=== PATIENT | female | born 1990 | race Caucasian/White ===

== ENCOUNTER → 2018-04-24 | Outpatient (CLI) | payer BC ==
[2018-04-24 09:40] LABS: BASOPHILS % (AUTO) 0 % (0-10); EOSINOPHILS # (AUTO) 0.1 10^3/uL (0.0-0.3); EOSINOPHILS % (AUTO) 1 % (0-10); HEMATOCRIT 40 % (35-52); HEMOGLOBIN 13.1 G/DL (11.5-16.0); LYMPHOCYTES # (AUTO) 1.4 X 10^3 (1.0-4.0); LYMPHOCYTES % (AUTO) 22 % (12-44); MEAN CORPUSCULAR HEMOGLOBIN 28 PG (25-34); MEAN CORPUSCULAR HGB CONC 33 G/DL (32-36); MEAN CORPUSCULAR VOLUME 86 FL (80-99); MEAN PLATELET VOLUME 9.5 FL (7.4-10.4); MONOCYTES # (AUTO) 0.4 X 10^3 (0.0-1.0); MONOCYTES % (AUTO) 6 % (0-12); NEUTROPHILS # (AUTO) 4.6 X 10^3 (1.8-7.8); NEUTROPHILS % (AUTO) 71 % (42-75); PLATELET COUNT 346 10^3/uL (130-400); RED CELL DISTRIBUTION WIDTH 13.7 % (10.0-14.5); WHITE BLOOD COUNT 6.5 10^3/uL (4.3-11.0)
--- NOTE | 2018-04-24 10:05 | Diagnostic Imaging Report ---
INDICATION: Pain. FINDINGS: The colonic fecal load is not pathologic. The bowel gas pattern is unremarkable. No dilated air-containing loops of bowel. Some calcifications in the left pelvis are consistent with phleboliths. A right pelvic calcification of 1.7 mm may be a phlebolith or a distal ureteral stone in the appropriate clinical scenario. IMPRESSION: 1. Nonobstructive bowel gas pattern. Pelvic calcifications are predominantly (if not exclusively) phleboliths. A right-sided calcification is indeterminate and could reflect a distal ureteral stone. If clinical features are compatible with ureteral obstruction, consider a CT abdomen/pelvis as further evaluation. 2. No other potential acute finding. Dictated by: Dictated on workstation # [id number]
[2018-04-24 10:31] LABS: ERYTHROCYTE SEDIMENTATION RATE 8 MM/HR (0-20)
== END ==
LOC: RAD 09:20
PROVIDERS: ATTEND Nurse Practitioner Family
DX: I87.8 Other specified disorders of veins (principal); R10.31 Right lower quadrant pain
CPT/HCPCS: 36415; 74018; 85025; 85652

== ENCOUNTER → 2018-05-08 | Outpatient (CLI) | payer BC ==
[~2018-05-08] MED LIST: RECEIVED CONTRAST (Hold Metformin) IV SCH
[2018-05-08] MEDS: NS 100 ML (IVPB) BAG IV ONE (10:38)
[2018-05-08] MEDS: IOHEXOL 350 MG/ML 100 ML (OMNIPAQUE 350) VIAL IV ONE (10:38)
--- NOTE | 2018-05-08 11:19 | Diagnostic Imaging Report ---
PROCEDURE: CT abdomen and pelvis with contrast. TECHNIQUE: Multiple contiguous axial images were obtained through the abdomen and pelvis after administration of intravenous contrast. INDICATION: Right lower quadrant abdominal pain. COMPARISON: None. FINDINGS: Included portions of the lung bases are clear. CT ABDOMEN: Small bowel loops are nondistended. Normal appendix is identified. The kidneys, adrenal glands, spleen, pancreas, and liver have a normal CT appearance. There is no loculated fluid collection, free fluid, nor free air within the abdomen. No abnormal mesenteric or retroperitoneal adenopathy is seen. Bony structures show no acute abnormalities. CT PELVIS: Urinary bladder is grossly unremarkable. There is no loculated fluid collection, free fluid, nor free air within the pelvis. Left ovarian cyst measures 2.4 x 2 cm. No abnormal lymph nodes are identified within the pelvis. Bony structures show no acute abnormalities. IMPRESSION: 1. Small left ovarian cyst. Otherwise, no acute abnormalities are seen within the abdomen or pelvis. Dictated by: Dictated on workstation # [id number]
== END ==
LOC: RAD 09:57
PROVIDERS: ATTEND Pediatrics
DX: N83.202 Unspecified ovarian cyst, left side (principal)
CPT/HCPCS: 74177

== ENCOUNTER → 2020-06-09 | Outpatient (CLI) | payer BC, OTHER ==
--- NOTE | 2020-06-09 09:50 | Diagnostic Imaging Report ---
PROCEDURE: US Non-ob pelvis comp/trans. TECHNIQUE: Multiple realtime grayscale images were obtained of the pelvis in various projections endovaginally. Transabdominal imaging was also performed. INDICATION: Dysfunctional uterine bleeding Uterus measures 8.2 x 3.9 x 5.9 cm. Endometrial stripe is 1.3 cm. The myometrium and endometrium appear normal. The ovaries are normal in size with normal blood flow. There is an involuting cyst on the left ovary. There are some nabothian cysts in the cervix. IMPRESSION: Unremarkable pelvic ultrasound. Dictated by: Dictated on workstation # [id number]
== END ==
LOC: RAD 08:00
PROVIDERS: ATTEND Obstetrics & Gynecology
DX: N93.9 Abnormal uterine and vaginal bleeding, unspecified (principal)
CPT/HCPCS: 76830; 76856

== ENCOUNTER 2020-07-03 05:31 | Outpatient (CLI) | payer BC, OTHER ==
[~2020-07-03] VITALS: Ht 175.3 cm; Wt 90.9 kg
[2020-07-03] MEDS ORDERED: CETI10TA49 PO (16:10)
== END 2020-07-03 16:15 | disposition home or self-care (01) ==
LOC: PREOP 05:31
PROVIDERS: ATTEND Obstetrics & Gynecology
DX: Z01.818 Encounter for other preprocedural examination (principal)

== ENCOUNTER 2020-07-10 08:01 | Day surgery (SDC) | payer BC, OTHER ==
[~2020-07-10] VITALS: Ht 175.3 cm; Wt 90.9 kg
[2020-07-10] VITALS (10 sets, daily range): BP systolic 105–128; BP diastolic 60–90
[~2020-07-10 08:01] MED LIST changes: +CETI10TA49 PO; -RECEIVED CONTRAST (Hold Metformin) IV SCH
[2020-07-10] MEDS ORDERED: LACTATED RINGERS 1,000 ML IV PRN (08:30)
[2020-07-10] MEDS ORDERED: fentaNYL INJ 100 MCG/2 ML AMP ONE (08:54)
[2020-07-10] MEDS ORDERED: MIDAZOLAM 2 MG/2 ML (VERSED) VIAL ONE (08:54)
[2020-07-10] MEDS ORDERED: BUPIVACAINE 0.25% 30 ML (SENSORCAINE) VIAL ONE (09:33)
--- NOTE | 2020-07-10 09:34 | Progress Note-Pre Operative ---
Pre-Operative Progress Note H&P Reviewed The H&P was reviewed, patient examined and no changes noted. Date Seen by Provider: Jul 10, 2020 Time Seen by Provider: : Date H&P Reviewed: Jul 10, 2020 Time H&P Reviewed: :30 Pre-Operative Diagnosis: HERLINDA HERBERT DO Jul 10, 2020 09:34
[2020-07-10] MEDS ORDERED: IBUP-1773 PO (09:35)
--- NOTE | 2020-07-10 09:35 | Discharge Inst-Women's Service ---
Discharge Inst-Women's Serv Depart Medication/Instructions New, Converted or Re-Newed RX: RX on Chart Problems Reviewed?: Yes Consults/Follow Up Additional Follow Up: Yes Orders/Referrals Dr. Griggs in 7-10 days Activity Activity: Activity as Tolerated Driving Instructions: You May Drive NO SMOKING: NO SMOKING Nothing Inside Vagina: No Douching, No Forrest, No Tampons Diet Discharge Diet: No Restrictions Symptoms to Report to : Bleeding Excessive, Pain Increased, Fever Over 101 Degrees F, Vaginal Bleeding Increase, Questions/Concerns HERLINDA GRIGGS DO Jul 10, 2020 09:35
[2020-07-10 09:38] LABS: BASOPHILS # (AUTO) 0.1 10^3/uL (0.0-0.1); BASOPHILS % (AUTO) 1 % (0-10); EOSINOPHILS # (AUTO) 0.2 10^3/uL (0.0-0.3); EOSINOPHILS % (AUTO) 3 % (0-10); HEMATOCRIT 38 % (35-52); HEMOGLOBIN 12.4 g/dL (11.5-16.0); LYMPHOCYTES # (AUTO) 1.4 10^3/uL (1.0-4.0); LYMPHOCYTES % (AUTO) 25 % (12-44); MEAN CORPUSCULAR HEMOGLOBIN 27 pg (25-34); MEAN CORPUSCULAR HGB CONC 32 g/dL (32-36); MEAN CORPUSCULAR VOLUME 84 fL (80-99); MEAN PLATELET VOLUME 9.9 fL (9.0-12.2); MONOCYTES # (AUTO) 0.4 10^3/uL (0.0-1.0); MONOCYTES % (AUTO) 8 % (0-12); NEUTROPHILS # (AUTO) 3.6 10^3/uL (1.8-7.8); NEUTROPHILS % (AUTO) 64 % (42-75); PLATELET COUNT 309 10^3/uL (130-400); WHITE BLOOD COUNT 5.7 10^3/uL (4.3-11.0)
[2020-07-10] MEDS ORDERED: D5 LR IV SOLUTION 1,000 ML IV SCH (09:45)
[2020-07-10] MEDS ORDERED: KETOROLAC 30 MG/ML VIAL IVP ONE (09:45)
[2020-07-10] MEDS ORDERED: ONDANSETRON 4 MG/2 ML (SDV) Z0FRAN IVP PRN ×2 (09:45→10:45)
[2020-07-10] MEDS ORDERED: HYDROcodone/APAP 5 MG/325 MG (LORTAB) TAB PO PRN (09:45)
[2020-07-10] MEDS ORDERED: proPOfol 200 MG/20 ML (DIPRIVAN) VIAL IV ONE (10:23)
[2020-07-10] MEDS ORDERED: LIDOCAINE PF 2% 5 ML (XYLOCAINE) VIAL ONE (10:23)
[2020-07-10] MEDS ORDERED: ONDANSETRON 4 MG/2 ML (SDV) Z0FRAN ONE (10:23)
[2020-07-10] MEDS ORDERED: SEVOFLURANE (ULTANE) 15 ML INHAL SOLN ONE (10:23)
--- NOTE | 2020-07-10 10:37 | Anesthesia-General Post-Op ---
General Patient Condition Mental Status/LOC: Same as Preop Cardiovascular: Satisfactory Nausea/Vomiting: Absent Respiratory: Satisfactory Pain: Controlled Complications: Absent Post Op Complications Complications None Follow Up Care/Instructions Patient Instructions None needed. Anesthesia/Patient Condition Patient Condition Patient is doing well, no complaints, stable vital signs, no apparent adverse anesthesia problems. No complications reported per nursing. NAVDEEP ALEXANDER CRNA Jul 10, 2020 10:37
[2020-07-10] MEDS ORDERED: morphine INJ 10 MG/ML 1ML (SYR OR VIAL) IVP ONE (10:45)
[2020-07-10] MEDS ORDERED: HYDROmorphone 2 MG/ML VIAL (DILAUDID) IV ONE (10:45)
[2020-07-10] MEDS ORDERED: fentaNYL INJ 100 MCG/2 ML AMP IVP ONE (10:45)
--- NOTE | 2020-07-10 14:57 | OPERATIVE REPORT ---
DATE OF SERVICE: PREOPERATIVE DIAGNOSIS: A 29-year-old female with abnormal uterine bleeding. POSTOPERATIVE DIAGNOSIS: A 29-year-old female with abnormal uterine bleeding. PROCEDURE: D and C. SURGEON: Herlinda Griggs DO ANESTHESIA: LMA general. ESTIMATED BLOOD LOSS: Minimal. URINE OUTPUT: 150, clear at the end of procedure. FLUIDS: 800 mL lactated Ringer's solution. FINDINGS: Grossly normal-appearing external female genitalia and moderate to large amount of endometrial tissue collected on curetting. SPECIMEN SENT: Endometrial curettings. INDICATIONS FOR PROCEDURE: This 29-year-old female was a patient who had sought care in my office for abnormal bleeding with heavy bleeding patterns were discussed with the patient next step and evaluation. She had a normal ultrasound and tried OCPs and IUDs in the past without any improvement in her symptoms. She is wishing to be more aggressive with her treatment strategy now. I discussed with the patient next step would be D and C, although she was hesitant and wanted to proceed with hysterectomy. She was counseled about the D and C and was agreeable to proceed with this method as the next appropriate step. Risks of procedure were discussed with the patient in detail and after all of her questions were answered, consent was obtained in the preoperative area and the patient was taken to the operating room. OPERATIVE REPORT IN DETAIL: Once in the operating room, anesthesia was found to be adequate. She was placed in dorsal lithotomy position, prepped and draped in normal sterile fashion where a timeout was performed. Straight catheterization was performed. A weighted speculum was inserted into the patient's vagina. Right angle retractor was used to visualize the cervix, which was grasped at 12 o'clock position using a long Allis clamp. I then placed a paracervical block at 3 and 9 o'clock positions on the cervix. Care was taken to aspirate for injecting a total of 5 mL on each injection site are injected, after which I sound the uterine cavity, was found to be 8 cm, then gently dilated the cervix using Hanks dilators to allow curettage entry into the endometrium. I then gently curettage of all surfaces of the endometrial cavity collecting a large to moderate amount of endometrial curettings. This was all sent together as one pathologic specimen of endometrial curettings, after which there was no active bleeding noted from any of my dissection planes. I removed the Allis clamp and removed the weighted speculum. The patient tolerated the procedure well and sent to recovery in stable condition. Lap and sponge counts were correct at the end of the procedure. Instrument counts correct as well. Job ID: [id number] DocumentID: [id number] Dictated Date: 07/10/2020 10:29:55 Motor And Generator Assembler Date: 07/10/2020 14:56:49 Dictated By: HERLINDA GRIGGS DO
== END 2020-07-10 13:00 | disposition home or self-care (01) ==
LOC: SDC 08:01
PROVIDERS: ATTEND Obstetrics & Gynecology
DX: N93.8 Other specified abnormal uterine and vaginal bleeding (principal); R93.89 Abnormal findings on diagnostic imaging of other specified body structures; Z91.040 Latex allergy status; Z91.09 Other allergy status, other than to drugs and biological substances; Z79.899 Other long term (current) drug therapy; Z98.51 Tubal ligation status; Z90.49 Acquired absence of other specified parts of digestive tract; Z82.49 Family history of ischemic heart disease and other diseases of the circulatory system; Z83.3 Family history of diabetes mellitus
CPT/HCPCS: 36415; 84703; 85025; 86850; 86900; 86901; 87081; 88305

== ENCOUNTER 2020-10-02 05:35 | Outpatient (CLI) | payer OTHER ==
[~2020-10-02] VITALS: Ht 175.3 cm; Wt 101.7 kg
[~2020-10-02 05:35] MED LIST changes: +IBUP-1773 PO
[2020-10-03] MEDS ORDERED: CETI10TA49 PO (09:06)
== END 2020-10-03 09:22 | disposition home or self-care (01) ==
LOC: PREOP 05:35
PROVIDERS: ATTEND Obstetrics & Gynecology
DX: Z01.818 Encounter for other preprocedural examination (principal)

== ENCOUNTER 2020-10-09 08:15 | Day surgery (SDC) | payer OTHER ==
[2020-10-09] VITALS (10 sets, daily range): BP systolic 96–123; BP diastolic 52–85
[~2020-10-09] VITALS: Ht 175.3 cm; Wt 101.7 kg
[2020-10-09] MEDS ORDERED: ceFAZolin 2 GM IV Premixed 50 ML IV ONE (08:30)
[2020-10-09] MEDS ORDERED: LACTATED RINGERS 1,000 ML IV PRN (08:30)
[2020-10-09] MEDS ORDERED: metroNIDAZOLE 500MG/100ML IVPB 100 ML IV ONE (08:30)
[2020-10-09] MEDS ORDERED: CATHETER FLUSH 10 ML SYR IV PRN (08:45)
[2020-10-09 09:00] LABS: BASOPHILS # (AUTO) 0.1 10^3/uL (0.0-0.1); BASOPHILS % (AUTO) 1 % (0-10); EOSINOPHILS % (AUTO) 1 % (0-10); HEMATOCRIT 42 % (35-52); HEMOGLOBIN 13.4 g/dL (11.5-16.0); LYMPHOCYTES # (AUTO) 1.1 10^3/uL (1.0-4.0); LYMPHOCYTES % (AUTO) 13 % (12-44); MEAN CORPUSCULAR HEMOGLOBIN 28 pg (25-34); MEAN CORPUSCULAR HGB CONC 32 g/dL (32-36); MEAN CORPUSCULAR VOLUME 86 fL (80-99); MEAN PLATELET VOLUME 10.1 fL (9.0-12.2); MONOCYTES # (AUTO) 0.4 10^3/uL (0.0-1.0); MONOCYTES % (AUTO) 5 % (0-12); NEUTROPHILS # (AUTO) 6.7 10^3/uL (1.8-7.8); NEUTROPHILS % (AUTO) 81 % (42-75); PLATELET COUNT 370 10^3/uL (130-400); WHITE BLOOD COUNT 8.3 10^3/uL (4.3-11.0)
[2020-10-09] MEDS ORDERED: BUPIVACAINE 0.25% 30 ML (SENSORCAINE) VIAL ONE (09:00)
--- NOTE | 2020-10-09 09:14 | Progress Note-Pre Operative ---
Pre-Operative Progress Note H&P Reviewed The H&P was reviewed, patient examined and no changes noted. Date Seen by Provider: Oct 09, 2020 Time Seen by Provider: 09:45 Date H&P Reviewed: Oct 09, 2020 Time H&P Reviewed: 09:40 Pre-Operative Diagnosis: AUB, Menorrhagia, Chronic blood loss anemia HERLINDA GRIGGS DO Oct 09, 2020 09:14
[2020-10-09] MEDS ORDERED: SIMETHICONE 80 MG (MYLICON) CHEW PO PRN (09:15)
[2020-10-09] MEDS ORDERED: DOCUSATE SODIUM 100 MG (COLACE) CAP PO PRN (09:15)
[2020-10-09] MEDS ORDERED: ANTACID SUSP 30 ML UDC (MYLANTA) PO PRN (09:15)
[2020-10-09] MEDS ORDERED: CHLORASEPTIC LOZENGE MM PRN (09:15)
[2020-10-09] MEDS ORDERED: HYDROcodone/APAP 7.5 MG/325 MG (LORTAB, LORCET PLUS) TABLET PO PRN (09:15)
[2020-10-09] MEDS ORDERED: ZOLPIDEM 5 MG (AMBIEN) TAB PO PRN (09:15)
[2020-10-09] MEDS ORDERED: ONDANSETRON 4 MG/2 ML (SDV) Z0FRAN IV PRN (09:15)
--- NOTE | 2020-10-09 09:16 | Discharge Inst-Women's Service ---
Discharge Inst-Women's Serv Depart Medication/Instructions New, Converted or Re-Newed RX: Transmitted to Pharmacy Problems Reviewed?: Yes Consults/Follow Up Additional Follow Up: Yes Orders/Referrals Dr. Blanco in 7-10 days, and in 8 weeks Activity Driving Instructions: No Driving for 1 Week NO SMOKING: NO SMOKING Nothing Inside Vagina: No Douching, No Clutier, No Tampons Diet Discharge Diet: No Restrictions Symptoms to Report to : Bleeding Excessive, Pain Increased, Fever Over 101 Degrees F, Vaginal Bleeding Increase, Questions/Concerns For Any Problems or Questions: Contact Your Physician Skin/Wound Care Infection Signs and Symptoms: Increased Redness, Foul Odor of Wound, Increased Drainage, Skin Itchy or Has a Rash, Increased Swelling, Temperature Above 101 F Operative Area Clean and Dry: Keep Incision Clean/Dry Stitches/[place]/Dermabond: Dermabond, Care of Stitches Bathing Instructions: HERLINDA Olmedo DO Oct 09, 2020 09:16
[2020-10-09] MEDS ORDERED: HYDR-34 PO (09:17)
[2020-10-09] MEDS ORDERED: DCS100C PO (09:17)
[2020-10-09] MEDS ORDERED: IBUP-844 PO (09:17)
[2020-10-09] MEDS ORDERED: BENZ1LOZ64 MM (09:17)
[2020-10-09] MEDS ORDERED: SMT80CT PO (09:17)
[2020-10-09] MEDS ORDERED: KETOROLAC 30 MG/ML VIAL ONE (09:30)
[2020-10-09] MEDS ORDERED: ROCURONIUM 10 MG/ML 5 ML SYRINGE IV ONE (09:30)
[2020-10-09] MEDS ORDERED: MIDAZOLAM 2 MG/2 ML (VERSED) VIAL ONE (09:30)
[2020-10-09] MEDS ORDERED: ONDANSETRON 4 MG/2 ML (SDV) Z0FRAN ONE (09:30)
[2020-10-09] MEDS ORDERED: NEOSTIGMINE 3 MG/3 ML VIAL ONE (09:30)
[2020-10-09] MEDS ORDERED: GLYCOPYRROLATE 0.2 MG/ML (ROBINUL) 2 ML VIAL ONE (09:30)
[2020-10-09] MEDS ORDERED: fentaNYL INJ 100 MCG/2 ML AMP ONE (09:30)
[2020-10-09] MEDS ORDERED: proPOfol 200 MG/20 ML (DIPRIVAN) VIAL IV ONE (09:30)
[2020-10-09] MEDS ORDERED: LIDOCAINE PF 2% 5 ML (XYLOCAINE) VIAL ONE (09:30)
[2020-10-09] MEDS: KETOROLAC 30 MG/ML VIAL IV PRN ×2 (11:15→18:05)
[2020-10-09] MEDS: LACTATED RINGERS 1,000 ML IV SCH ×2 (11:15→14:04)
[2020-10-09] MEDS ORDERED: SEVOFLURANE (ULTANE) 15 ML INHAL SOLN ONE (11:24)
[2020-10-09] MEDS ORDERED: morphine INJ 10 MG/ML 1ML (SYR OR VIAL) IVP ONE (11:45)
[2020-10-09] MEDS ORDERED: HYDROmorphone 2 MG/ML VIAL (DILAUDID) IV ONE (11:45)
[2020-10-09] MEDS ORDERED: PROMETHAZINE INJ 25 MG/ML (PHENERGAN) AMP IVP ONE (11:45)
[2020-10-09] MEDS ORDERED: MEPERIDINE (DEMEROL) INJ 50 MG/ML IVP ONE (11:45)
[2020-10-09] MEDS ORDERED: ONDANSETRON 4 MG/2 ML (SDV) Z0FRAN IVP PRN (11:45)
--- NOTE | 2020-10-09 14:49 | Anesthesia-General Post-Op ---
General Patient Condition Mental Status/LOC: Same as Preop Cardiovascular: Satisfactory Nausea/Vomiting: Absent Respiratory: Satisfactory Pain: Controlled Complications: Absent Post Op Complications Complications None Follow Up Care/Instructions Patient Instructions None needed. Anesthesia/Patient Condition Patient Condition Patient is doing well, no complaints, stable vital signs, no apparent adverse anesthesia problems. No complications reported per nursing. CRISTINA KIMBALL CRNA Oct 09, 2020 14:49
--- NOTE | 2020-10-09 19:38 | OPERATIVE REPORT ---
DATE OF SERVICE: PREOPERATIVE DIAGNOSES: 1. A 29-year-old female with abnormal uterine bleeding. 2. Menorrhagia. POSTOPERATIVE DIAGNOSES: 1. A 29-year-old female with abnormal uterine bleeding. 2. Menorrhagia. PROCEDURE: Robotic-assisted total laparoscopic hysterectomy with bilateral salpingectomy. SURGEON: Gian Griggs DO ANESTHESIA: General endotracheal. ESTIMATED BLOOD LOSS: Minimal. URINE OUTPUT: 50 mL clear at the end of procedure. FLUIDS: 1400 mL lactated Ringer's solution. FINDINGS: A hyperemic appearing uterus, slightly bulky and enlarged cervix, very vascular appearing cervix on peritoneal evaluation, grossly normal appearing external female genitalia, grossly normal appearing bilateral ovaries. SPECIMEN SENT: Uterus, bilateral fallopian tubes. INDICATIONS FOR PROCEDURE: This 29-year-old female is a patient, who had sought care in my office for concerns with ongoing issues with bleeding. She had attempted multiple conservative treatment modalities in the past including oral contraceptive pills, IUD, Depo-Provera injections and a D and C. Finally, she wants to proceed with more definitive measures as she is becoming frustrated and has completed childbearing and already had a tubal ligation performed. Risks of the procedure was discussed with the patient in detail including risk of bleeding, infection, damage to the surrounding structures including, but not limited to bowel, bladder, ureter, kidneys, possible need for operation, postoperative complications that could occur, risk from anesthesia and even . After everything was discussed with the patient in detail, the consent was obtained and the patient was taken to the operating room. OPERATIVE REPORT IN DETAIL: Once in the operating room, general anesthesia was found to be adequate, placed in dorsal lithotomy position, prepped and draped in normal sterile fashion. Timeout was performed. [place] catheter was placed using sterile technique. Weighted speculum was inserted to the patient's vagina. Right angle retractor was used to visualize the cervix. It was grasped at 12 o'clock position using a long Allis clamp. I then placed an 0 Vicryl suture through the anterior lip of the cervix and used that suture as my retraction on the cervix from that point. The Allis clamp was then removed. I then gently sound the uterine cavity, depth was found to be 8 cm. I selected an 8 cm Sumi uterine manipulator tip and a 4 cm colpotomy ring. The manipulator tip was advanced into the uterus and the balloon was deployed and the colpotomy ring was advanced around the vaginal fornix, excellent bimanual manipulation is appreciated at that point, using the Sumi uterine manipulator. I then performed a change of gloves and turned my attention to the abdomen and I began by infiltrating the inferior umbilical area using 0.25% Marcaine to make an 8 mm incision with a knife. I then placed a Veress needle at the midclavicular line subcostally two fingerbreadths below the lowest rib. Once I do this, I am able to confirm intraperitoneal placement using the saline drop test. I then proceeded with insufflation using CO2 gas and opening pressure 4 mmHg was noted. I proceeded to max pressure of 15 mmHg, at which point I leave the Veress needle in place and placed an 8 mm laparoscopic da Nevaeh camera trocar. Once this was in place, I am able to confirm intraperitoneal placement using the da Nevaeh laparoscope. There was no evidence of damage upon my entry site and a scan of the left upper quadrant revealed the Veress entry site and no evidence of damage upon its entry site. The Veress was then removed. I then had the patient placed in steep Trendelenburg and made visualize all my anatomy as defined in my findings above. I placed two lateral trocars approximately 8 cm lateral to my infraumbilical trocar. These 8 mm trocars were both placed under direct visualization of laparoscope. In similar fashion, the skin was infiltrated using 0.25% Marcaine and incisions were made with a knife. Once both these trocars were in place, I bring in the da Nevaeh robot and docked in appropriate fashion placing the SynchroSeal in the left hand and monopolar whitlye in the right hand. I performed the following dissection bilaterally starting at the uteroovarian ligament, I sealed and transected using the EnSeal. I then created a window in the mesosalpinx and took this laterally down the mesosalpinx amputating the fallopian tube from its surrounding blood supply using the SynchroSeal. I then grasped the round ligament, which I sealed and transected using the SynchroSeal then grasped the broad ligament, which I sealed and transect using the SynchroSeal all the way down to the level of the lower uterine segment, at which point, I the anterior and posterior leaflets of the broad ligament. The anterior leaflet dissection was taken around to the anterior vaginal fornix and posterior leaflets dissection was taken around the posterior vaginal fornix. This allows me to skeletonize the uterine vessels laterally, which I sealed and transected using the SynchroSeal device. I then created a colpotomy at 12 o'clock position using monopolar whitley and took this circumferentially around the vaginal fornix amputating the cervix away from the vagina. The uterus was then removed through the vagina with fallopian tubes attached. The lateral vaginal apices of the vaginal cuff are then reapproximated using 2-0 Vicryl suture in a [id number] fashion colposuspending them to the uterosacral ligaments. I then closed the remainder of the vaginal cuff using 2-0 V-Loc in a running fashion, after which no active bleeding noted from any of my dissection planes. I placed Surgiflo hemostatic agent over all my planes of dissection to ensure excellent postoperative hemostasis. I undocked the da Nevaeh robot and proceeded with remainder of the case laparoscopically. I copiously irrigated the pelvis using normal saline. Once again, there was no active bleeding noted from any of my dissection planes. I then had the patient taken out of steep Trendelenburg, I removed the lateral trocars under direct visualization of laparoscope. The infraumbilical trocar was left in place to release the remainder of the insufflation and introduce 10 mL of 0.25% Marcaine into the peritoneal cavity for postoperative pain management. This trocar was then removed as well. The skin reapproximated using 4-0 Monocryl in interrupted subcuticular stitch. Dermabond was applied to the incisions and Band-Aids were placed over the incisions as well. Birmingham catheter was left in place. The patient tolerated the procedure well and sent to recovery in stable condition. Lap and sponge counts were correct at the end of the procedure. Instrument counts correct as well. Job ID: [id number] DocumentID: [id number] Dictated Date: 10/09/2020 12:37:28 Zipper Ironer Date: 10/09/2020 19:38:13 Dictated By: GIAN GRIGGS DO
[2020-10-10] MEDS ORDERED: IBUPROFEN 600 MG (MOTRIN) TAB PO SCH (02:00)
== END 2020-10-09 18:10 | disposition home or self-care (01) ==
LOC: SDC 08:15 → WS 12:22 → SDC 18:10
PROVIDERS: ATTEND Obstetrics & Gynecology
DX: N92.0 Excessive and frequent menstruation with regular cycle (principal); N93.9 Abnormal uterine and vaginal bleeding, unspecified; N80.0 Endometriosis of uterus; N83.8 Other noninflammatory disorders of ovary, fallopian tube and broad ligament; J30.9 Allergic rhinitis, unspecified; Z90.49 Acquired absence of other specified parts of digestive tract; Z79.899 Other long term (current) drug therapy; Z83.3 Family history of diabetes mellitus; Z82.49 Family history of ischemic heart disease and other diseases of the circulatory system; Z82.62 Family history of osteoporosis
CPT/HCPCS: 36415; 84703; 85025; 86850; 86900; 86901; 87081; 88307

== ENCOUNTER 2020-10-11 10:33 | Emergency (ER) | payer BC, OTHER ==
[~2020-10-11] VITALS: Ht 175 cm; Wt 99.7 kg
[~2020-10-11 10:33] MED LIST changes: +BENZ1LOZ64 MM; +DCS100C PO; +HYDR-34 PO; +IBUP-844 PO; +SMT80CT PO
[2020-10-11] MEDS ORDERED: LACTATED RINGERS 1,000 ML IV STA (11:34)
[2020-10-11] MEDS ORDERED: IOHEXOL 350 MG/ML 100 ML (OMNIPAQUE 350) VIAL IV ONE (12:00)
[2020-10-11 12:01] LABS: BASOPHILS # (AUTO) 0.1 10^3/uL (0.0-0.1); BASOPHILS % (AUTO) 1 % (0-10); EOSINOPHILS # (AUTO) 0.1 10^3/uL (0.0-0.3); EOSINOPHILS % (AUTO) 1 % (0-10); HEMATOCRIT 39 % (35-52); HEMOGLOBIN 12.6 g/dL (11.5-16.0); LYMPHOCYTES # (AUTO) 1.5 10^3/uL (1.0-4.0); LYMPHOCYTES % (AUTO) 14 % (12-44); MEAN CORPUSCULAR HEMOGLOBIN 28 pg (25-34); MEAN CORPUSCULAR HGB CONC 33 g/dL (32-36); MEAN CORPUSCULAR VOLUME 86 fL (80-99); MEAN PLATELET VOLUME 10.3 fL (9.0-12.2); MONOCYTES # (AUTO) 1.1 10^3/uL (0.0-1.0); MONOCYTES % (AUTO) 10 % (0-12); NEUTROPHILS # (AUTO) 8.3 10^3/uL (1.8-7.8); NEUTROPHILS % (AUTO) 75 % (42-75); PLATELET COUNT 300 10^3/uL (130-400)
--- NOTE | 2020-10-11 12:14 | ED Respiratory ---
General Chief Complaint: Post OP Complications/Pain Stated Complaint: SOB, S/P SX Nursing Triage Note: PT PRESENTS TO ED VIA POV FROM HOME WITH COMPLAINTS OF SUDDEN SOA AND CP THAT PROGRESSIVELY GOTTEN WORSE SINCE LAST NIGHT. PT REPORTS SHE HAD A PARTIAL HYST FRIDAY. Source: patient Exam Limitations: no limitations History of Present Illness Date Seen by Provider: Oct 11, 2020 Time Seen by Provider: 11:11 Initial Comments Patient to the ER by private conveyance with chief complaint of shortness of air. She had hysterectomy by Dr. Blanco about a week ago. Progressively worsening over the past couple days. No swelling in either leg. No history of blood clots in herself or her family. She does not smoke or have lung disease nor heart disease. Setting some pain into her upper shoulders and back. Right side is worse than left. Pain is not worse with movement. Shortness of breath is not worse with laying flat or sitting forward. It is worse however with exertion. She does not take oral contraceptives nor does she smoke. She has not had significant bleeding. Allergies and Home Medications Allergies Coded Allergies: aloe (Verified Allergy, Unknown, Hives, 07/03/20) latex (Verified Allergy, Unknown, Shortness of Breath, 07/03/20) Home Medications Benzocaine/Menthol 1 Each Lozenge, 1 LAILTHA MM Q3H PRN for SORE THROAT Prescribed by: HERLINDA BLANCO on 10/09/20916 Cetirizine HCl 10 Mg Tablet, 10 MG PO DAILY, (Reported) Docusate Sodium 100 Mg Capsule, 100 MG PO BID PRN for CONSTIPATION-1ST LINE Prescribed by: HERLINDA BLANCO on 10/09/20916 Hydrocodone Bit/Acetaminophen 1 Ea Tablet, 2 EA PO Q6H PRN for Pain-See Instructions Prescribed by: HERLINDA BLANCO on 10/09/20916 Hydrocodone/Acetaminophen 1 Each Tablet, 1-2 TAB PO Q6H PRN for PAIN-MODERATE (5-7) Prescribed by: JACKIE SALAZAR on 10/11/20 1520 Hydroxyzine Pamoate 25 Mg Capsule, 25 MG PO Q6H PRN for ANXIETY Prescribed by: JACKIE SALAZAR on 10/11/20 1520 Ibuprofen 600 Mg Tablet, 600 MG PO Q6H Prescribed by: HERLINDA BLANCO on 7/19/21 0917 Simethicone 80 Mg Tab.chew, 40 MG PO TID PRN for INDIGESTION 2ND LINE Prescribed by: HERLINDA BLANCO on 10/09/20 0917 Patient Home Medication List Home Medication List Reviewed: Yes Review of Systems Review of Systems Constitutional: No chills, No diaphoresis EENTM: No ear discharge, No ear pain Respiratory: No cough; short of breath; No wheezing Cardiovascular: No edema, No Hx of Intervention Gastrointestinal: No abdominal pain, No constipation Genitourinary: No dysuria, No pain Musculoskeletal: No back pain, No joint pain Skin: No no symptoms reported All Other Systems Reviewed Negative Unless Noted: Yes Past Qoazdrt-Ejsfur-Grljut Hx Patient Social History Tobacco Use?: No Smoking Status: Never a Smoker Substance use?: No Alcohol Use?: Yes Alcohol Frequency: Once in a while Pt feels they are or have been: No Seasonal Allergies Seasonal Allergies: Yes (ZYRTEC (GENERIC)) Past Medical History Surgery/Hospitalization HX: SX: PARTIAL HYST, DNC, GALLBLADDER. Surgeries: Yes (D & C) Gallbladder Respiratory: No Currently Using CPAP: No Currently Using BIPAP: No Cardiac: No Neurological: No Female Reproductive Disorders: Menstrual Problems Genitourinary: No Gastrointestinal: No Musculoskeletal: No Endocrine: No HEENT: Yes (WEARS CONTACTS/GLASSES) Hearing Impairment: Denies Cancer: No Psychosocial: No Integumentary: No Blood Disorders: No Physical Exam Vital Signs - First Documented 10/11/20 11:02 Temp 36.7 Pulse 82 Resp 18 B/P (MAP) 116/87 (97) Pulse Ox 100 Capillary Refill : Less Than 3 Seconds Height: '" Weight: lbs. oz. kg; 32.00 BMI Method: General Appearance: mild distress, obese Eyes: Bilateral Eye Normal Inspection, Bilateral Eye PERRL, Bilateral Eye EOMI HEENT: PERRL/EOMI, pharynx normal Neck: full range of motion, normal inspection Respiratory: lungs clear, normal breath sounds, respiratory distress (Mild to moderate with increased work of breathing, accessory muscle use, 25 to 30 breaths/min maintaining oxygen saturation 96 to 97%), accessory muscle use Cardiovascular: normal peripheral pulses, regular rate, rhythm Gastrointestinal: normal bowel sounds, non tender Extremities: normal range of motion, non-tender Neurologic/Psychiatric: alert, normal mood/affect, oriented x 3 Skin: normal color, warm/dry Progress/Results/Core Measures Suspected Sepsis SIRS Temperature: Pulse: 82 Respiratory Rate: 18 Laboratory Tests 10/11/20 10:47: White Blood Count 11.0 Blood Pressure 116 /87 Mean: 97 Laboratory Tests 10/11/20 10:47: Creatinine 0.74, Platelet Count 300, Total Bilirubin 2.3H Results/Orders Lab Results Laboratory Tests Test 10/11/20 10:47 10/11/20 12:32 10/11/20 12:46 Range/Units White Blood Count 11.0 4.3-11.0 10^3/uL Red Blood Count 4.50 3.80-5.11 10^6/uL Hemoglobin 12.6 11.5-16.0 g/dL Hematocrit 39 35-52 % Mean Corpuscular Volume 86 80-99 fL Mean Corpuscular Hemoglobin 28 25-34 pg Mean Corpuscular Hemoglobin Concent 33 32-36 g/dL Red Cell Distribution Width 13.9 10.0-14.5 % Platelet Count 300 130-400 10^3/uL Mean Platelet Volume 10.3 9.0-12.2 fL Immature Granulocyte % (Auto) 1 % Neutrophils (%) (Auto) 75 42-75 % Lymphocytes (%) (Auto) 14 12-44 % Monocytes (%) (Auto) 10 0-12 % Eosinophils (%) (Auto) 1 0-10 % Basophils (%) (Auto) 1 0-10 % Neutrophils # (Auto) 8.3 H 1.8-7.8 10^3/uL Lymphocytes # (Auto) 1.5 1.0-4.0 10^3/uL Monocytes # (Auto) 1.1 H 0.0-1.0 10^3/uL Eosinophils # (Auto) 0.1 0.0-0.3 10^3/uL Basophils # (Auto) 0.1 0.0-0.1 10^3/uL Immature Granulocyte # (Auto) 0.1 0.0-0.1 10^3/uL Sodium Level 140 135-145 MMOL/L Potassium Level 3.1 L 3.6-5.0 MMOL/L Chloride Level 106 98-107 MMOL/L Carbon Dioxide Level 19 L 21-32 MMOL/L Anion Gap 15 H 5-14 MMOL/L Blood Urea Nitrogen 11 7-18 MG/DL Creatinine 0.74 0.60-1.30 MG/DL Estimat Glomerular Filtration Rate > 60 BUN/Creatinine Ratio 15 Glucose Level 114 H 70-105 MG/DL Calcium Level 9.2 8.5-10.1 MG/DL Corrected Calcium 9.4 8.5-10.1 MG/DL Total Bilirubin 2.3 H 0.1-1.0 MG/DL Direct Bilirubin 1.7 H 0.0-0.3 MG/DL Indirect Bilirubin 0.6 MG/DL Aspartate Amino Transf (AST/SGOT) 139 H 5-34 U/L Alanine Aminotransferase (ALT/SGPT) 148 H 0-55 U/L Alkaline Phosphatase 149 H 40-136 U/L C-Reactive Protein High Sensitivity 14.48 H 0.00-0.50 MG/DL Total Protein 6.6 6.4-8.2 GM/DL Albumin 3.8 3.2-4.5 GM/DL Thyroid Stimulating Hormone (TSH) 2.22 0.35-4.94 UIU/ML Free Thyroxine 1.34 0.70-1.48 NG/DL Salicylates Level < 5.0 L 5.0-20.0 MG/DL Acetaminophen Level < 10 L 10-30 UG/ML Urine Color YELLOW Urine Clarity CLEAR Urine pH 8.0 5-9 Urine Specific [place] 1.010 L 1.016-1.022 Urine Protein NEGATIVE NEGATIVE Urine Glucose (UA) NEGATIVE NEGATIVE Urine Ketones 1+ H NEGATIVE Urine Nitrite NEGATIVE NEGATIVE Urine Bilirubin NEGATIVE NEGATIVE Urine Urobilinogen 0.2 < = 1.0 MG/DL Urine Leukocyte Esterase NEGATIVE NEGATIVE Urine RBC (Auto) NEGATIVE NEGATIVE Urine RBC RARE /HPF Urine WBC RARE /HPF Urine Squamous Epithelial Cells 2-5 /HPF Urine Crystals NONE /LPF Urine Bacteria NEGATIVE /HPF Urine Casts NONE /LPF Urine Mucus NEGATIVE /LPF Urine Culture Indicated NO Urine Opiates Screen POSITIVE H NEGATIVE Urine Oxycodone Screen NEGATIVE NEGATIVE Urine Methadone Screen NEGATIVE NEGATIVE Urine Propoxyphene Screen NEGATIVE NEGATIVE Urine Barbiturates Screen NEGATIVE NEGATIVE Ur Tricyclic Antidepressants Screen NEGATIVE NEGATIVE Urine Phencyclidine Screen NEGATIVE NEGATIVE Urine Amphetamines Screen NEGATIVE NEGATIVE Urine Methamphetamines Screen NEGATIVE NEGATIVE Urine Benzodiazepines Screen NEGATIVE NEGATIVE Urine Cocaine Screen NEGATIVE NEGATIVE Urine Cannabinoids Screen NEGATIVE NEGATIVE Blood Gas Puncture Site LEFT RADIAL Blood Gas Patient Temperature 36.7 Arterial Blood pH 7.56 H 7.37-7.43 Arterial Blood Partial Pressure CO2 22 L 35-45 MMHG Arterial Blood Partial Pressure O2 97 H 79-93 MMHG Arterial Blood HCO3 20 L 23-27 MMOL/L Arterial Blood Total CO2 20.5 L 21.0-31.0 MMOL/L Arterial Blood Oxygen Saturation 99 94-100 % Arterial Blood Base Excess -2.3 -2.5-2.5 MMOL/L Jorge Test POSITIVE Blood Gas Ventilator Setting NO Blood Gas Inspired Oxygen N/A My Orders Orders - MARTIN,JACKIE J Chest 1 View, Ap/Pa Only (10/11/20 11:34) Lactated Ringers (Lr 1000 Ml Iv Solution (10/11/20 11:34) Cbc With Automated Diff (10/11/20 11:34) Comprehensive Metabolic Panel (10/11/20 11:34) Hs C Reactive Protein (10/11/20 11:34) Ua Culture If Indicated (10/11/20 11:34) Iohexol Injection (Omnipaque 350 Mg/Ml 1 (10/11/20 12:00) Ct Angio Chest W (10/11/20 ) Arterial Blood Gas (10/11/20 12:47) Thyroid Stimulating Hormone (10/11/20 13:25) Acetaminophen (10/11/20 13:25) Free T4 (Free Thyroxine) (10/11/20 13:25) Salicylate (10/11/20 13:25) Drug Screen Stat (Urine) (10/11/20 13:41) Fentanyl Inj (Sublimaze Injection) (10/11/20 13:45) Bilirubin, Total And Direct (10/11/20 10:47) Medications Given in ED Current Medications Medications Dose Ordered Sig/Bernie Route Start Time Stop Time Status Last Admin Dose Admin Fentanyl Citrate 25 mcg ONCE ONCE IVP 10/11/20 13:45 10/11/20 13:46 DC 10/11/20 14:10 25 MCG Iohexol 100 ml ONCE ONCE IV 10/11/20 12:00 10/11/20 12:01 DC 10/11/20 12:36 77 ML Vital Signs/I&O 10/11/20 11:02 Temp 36.7 Pulse 82 Resp 18 B/P (MAP) 116/87 (97) Pulse Ox 100 Capillary Refill : Less Than 3 Seconds Blood Pressure Mean: 97 Progress Note #1: Time: 12:13 Progress Note High pretest probability for a pulmonary embolism so I sent her down for a CT angiogram. Also possibility of pneumonia so chest x-ray labs and an ABG to ascertain the extent of her hypoxemia. Progress Note #2: Time: 13:20 Progress Note ABG demonstrates respiratory alkalosis with some incomplete metabolic compensation. CT does not reveal any significant PE burden. Pain, anxiety? Her bilirubin significantly elevated and her AST ALT are marginally elevated. Plan to add an aspirin level. She did recently have surgery 2 days ago and that could maybe explain the transaminases. Not sure why her bilirubin is still high. Her CRP is significantly elevated so missed pneumonia? No fever cough or white count. Hyperthyroidism? We will check a TSH and a free T4. Fractionated bilirubin and a drug screen. We are going to try a nonrebreather on 2 L and see if we can retain some CO2 and improve her symptoms. Her breathing has already slowed down to about 22-24 breaths/min. Progress Note #3: Time: 15:16 Progress Note After some pain medicine the patient is more comfortable. We took the nonrebreather off and her vitals are normal. Still has clear lung sounds. We discussed with her the most likely source of her lab findings and symptoms is a combination of anxiety and inadequate pain control. We will provide her with some 10 x 325 hydrocodone tablets and Vistaril for anxiety and follow-up next week at her scheduled appointment with Dr. Blanco. Return precautions were discussed. Questions were answered and the patient is in agreement this plan. ECG Initial ECG Impression Date: Oct 11, 2020 Initial ECG Impression Time: 10:58 Initial ECG Rate: 83 Initial ECG Rhythm: Normal Sinus Initial ECG Intervals: Normal Initial ECG Impression: Normal, Nonspecific Changes Initial ECG Comparisson: No Previous ECG Available Comment Normal sinus rhythm without clinically relevant ST elevation or depression. Diagnostic Imaging Diagonstic Imaging: Xray Plain Films/CT/US/NM/MRI: chest [facility] [place] [place] NAME: SAMUEL STEWART [facility] REC#: [id number] PT STATUS: REG ER : 1990 PHYSICIAN: JACKIE SALAZAR MD ADMIT DATE: 10/11/20/ER Draft Date of Exam:10/11/20 CHEST 1 VIEW, AP/PA ONLY Indication: Shortness of air No priors There is some trace discoid subsegmental atelectasis right perihilar. No evidence for edema, pneumonia, effusion or pneumothorax. However no failure pattern. IMPRESSION: Trace atelectasis otherwise negative. Dictated on workstation # [id number] Dict: 10/11/20 1241 Trans: 10/11/20 1245 [facility] [id number] Interpreted by: MASON COMBS Electronically signed by: Reviewed: Reviewed by Me Diagonstic Imaging: CT Plain Films/CT/US/NM/MRI: chest Comments [facility] [place] NAME: SAMUEL STEWART [facility] REC#: [id number] PT STATUS: REG ER : 1990 PHYSICIAN: JACKIE SALAZAR MD ADMIT DATE: 10/11/20/ER Draft Date of Exam:10/11/20 CT ANGIO CHEST W PROCEDURE: CT angiography of the chest with contrast. TECHNIQUE: Multiple contiguous axial images were obtained through the chest after uneventful bolus administration of intravenous contrast. 3D reconstructed CTA MIP acquisitions were also performed. Auto Exposure Controls were utilized during the CT exam to meet ALARA standards for radiation dose reduction. DATE: October 11, 2020. COMPARISON: Chest radiograph October 11, 2020. INDICATION: 29-year-old female, shortness of breath. FINDINGS: There is no identified pulmonary nodule. There is no lung mass. There are linear opacities in the right lower lobe which enhance homogeneously consistent with atelectasis. There is a trace right pleural effusion. There is no pneumothorax. The central airways are patent. There is no identified pulmonary embolus. The main pulmonary artery diameter is within normal limits. The heart is not enlarged. There is no pericardial effusion. There is no identified abnormally enlarged mediastinal, hilar, or axillary lymph node meeting CT size criteria for adenopathy. There is a 4 mm low-attenuation right thyroid nodule. Soft tissue attenuation in the anterior mediastinum likely reflects thymic tissue. The patient is status post cholecystectomy. The additional evaluation of the imaged portions of the upper abdomen is unremarkable. There is no acute fracture or other acute bony abnormality. IMPRESSION: CT CHEST. 1. No identified pulmonary embolus. 2. Trace right pleural effusion with mild right lower lobe atelectasis. 3. No other acute cardiopulmonary abnormality. Dictated on workstation # [id number] Dict: 10/11/20 1237 Trans: 10/11/20 1250 [facility] [id number] Interpreted by: NORMA BLANCA MD Electronically signed by: Reviewed: Reviewed by Me Departure Impression Primary Impression: Post-op pain Additional Impression: Acute respiratory alkalosis Disposition: 01 HOME, SELF-CARE Condition: Stable Departure-Patient Inst. Decision time for Depature: 15:17 Referrals: HERLINDA BLANCO JOHN M MD (PCP/Family) Primary Care Physician Patient Instructions: Postoperative Pain (DC) Add. Discharge Instructions: I think that your shortness of breath has come from blowing off all of the CO2 causing you to become alkalotic. The brain does not like being in an alkalotic state because it does not have any good mechanisms to cope with it. We use medications such as Vistaril 1 tablet every 6 hours and better pain control to help slow your breathing down. You can also try and focus your breathing and slow down take slower deeper breaths. Follow-up with your surgeon next week. Hydrocodone 10 x 325 1-2 every 6 hours as necessary for pain. Make sure you are on MiraLAX or similar laxative to prevent constipation. Vistaril 1 tablet every 6 hours as necessary for shortness of breath or anxiety. Scripts Hydrocodone/Acetaminophen (Hydrocodone-Acetamin 5-325 mg) 1 Each Tablet 1-2 TAB PO Q6H PRN for PAIN-MODERATE (5-7), #20 TAB 0 Refills Prov: JACKIE SALAZAR 10/11/20 Hydroxyzine Pamoate (Vistaril) 25 Mg Capsule 25 MG PO Q6H PRN for ANXIETY, #30 CAP 0 Refills Prov: JACKIE SALAZAR 10/11/20 Copy Copies To 1: HERLINDA BLANCO TITUS J Oct 11, 2020 12:14
[2020-10-11 12:23] LABS: ALBUMIN 3.8 GM/DL (3.2-4.5); CHLORIDE 106 MMOL/L (98-107); POTASSIUM 3.1 MMOL/L (3.6-5.0); SODIUM 140 MMOL/L (135-145)
[2020-10-11 12:25] LABS: CALCIUM 9.2 MG/DL (8.5-10.1)
[2020-10-11 12:26] LABS: GLUCOSE 114 MG/DL (70-105); TOTAL PROTEIN 6.6 GM/DL (6.4-8.2)
[2020-10-11 12:27] LABS: CARBON DIOXIDE 19 MMOL/L (21-32)
[2020-10-11 12:28] LABS: BILIRUBIN,TOTAL 2.3 MG/DL (0.1-1.0)
[2020-10-11 12:29] LABS: ALKALINE PHOSPHATASE 149 U/L (40-136)
[2020-10-11 12:30] LABS: CREATININE SERUM 0.74 MG/DL (0.60-1.30); GFR ESTIMATED > 60
[2020-10-11 12:31] LABS: BUN/CREATININE RATIO 15
[2020-10-11 12:33] LABS: ALANINE AMINOTRANSFERASE 148 U/L (0-55)
[2020-10-11 12:39] LABS: BILIRUBIN,URINE NEGATIVE (NEGATIVE); CLARITY,URINE CLEAR; COLOR,URINE YELLOW; GLUCOSE, URINE (UA) NEGATIVE (NEGATIVE); KETONES,URINE 1+ (NEGATIVE); LEUKOCYTE ESTERASE ,URINE NEGATIVE (NEGATIVE); NITRITE,URINE NEGATIVE (NEGATIVE); PROTEIN,URINE NEGATIVE (NEGATIVE)
--- NOTE | 2020-10-11 12:45 | Diagnostic Imaging Report ---
Indication: Shortness of air No priors There is some trace discoid subsegmental atelectasis right perihilar. No evidence for edema, pneumonia, effusion or pneumothorax. However no failure pattern. IMPRESSION: Trace atelectasis otherwise negative. Dictated by: Dictated on workstation # [id number]
[2020-10-11 12:48] LABS: BACTERIA,URINE NEGATIVE /HPF; RBC,URINE RARE /HPF; WBC,URINE RARE /HPF
--- NOTE | 2020-10-11 12:50 | Diagnostic Imaging Report ---
PROCEDURE: CT angiography of the chest with contrast. TECHNIQUE: Multiple contiguous axial images were obtained through the chest after uneventful bolus administration of intravenous contrast. 3D reconstructed CTA MIP acquisitions were also performed. Auto Exposure Controls were utilized during the CT exam to meet ALARA standards for radiation dose reduction. DATE: October 11, 2020. COMPARISON: Chest radiograph October 11, 2020. INDICATION: 29-year-old female, shortness of breath. FINDINGS: There is no identified pulmonary nodule. There is no lung mass. There are linear opacities in the right lower lobe which enhance homogeneously consistent with atelectasis. There is a trace right pleural effusion. There is no pneumothorax. The central airways are patent. There is no identified pulmonary embolus. The main pulmonary artery diameter is within normal limits. The heart is not enlarged. There is no pericardial effusion. There is no identified abnormally enlarged mediastinal, hilar, or axillary lymph node meeting CT size criteria for adenopathy. There is a 4 mm low-attenuation right thyroid nodule. Soft tissue attenuation in the anterior mediastinum likely reflects thymic tissue. The patient is status post cholecystectomy. The additional evaluation of the imaged portions of the upper abdomen is unremarkable. There is no acute fracture or other acute bony abnormality. IMPRESSION: CT CHEST. 1. No identified pulmonary embolus. 2. Trace right pleural effusion with mild right lower lobe atelectasis. 3. No other acute cardiopulmonary abnormality. Dictated by: Dictated on workstation # [id number]
[2020-10-11 12:52] LABS: ABG BASE EXCESS -2.3 MMOL/L (-2.5-2.5); ABG OXYGEN SATURATION 99 % (94-100); ABG PCO2 22 MMHG (35-45); ABG PH 7.56 (7.37-7.43); ABG PO2 97 MMHG (79-93); ABG TCO2 20.5 MMOL/L (21.0-31.0)
[2020-10-11 12:53] LABS: ALLENS TEST POSITIVE; PATIENT TEMP 36.7; VENTILATOR NO
[2020-10-11 13:44] LABS: ACETAMINOPHEN < 10 UG/ML (10-30); SALICYLATE < 5.0 MG/DL (5.0-20.0)
[2020-10-11] MEDS ORDERED: fentaNYL INJ 100 MCG/2 ML AMP IVP ONE (13:45)
[2020-10-11 14:04] LABS: FREE T4 (FREE THYROXINE) 1.34 NG/DL (0.70-1.48)
[2020-10-11 14:09] LABS: AMPHETAMINE SCREEN, URINE NEGATIVE (NEGATIVE); BARBITURATE SCREEN URINE NEGATIVE (NEGATIVE); BENZODIAZEPINES SCREEN URINE NEGATIVE (NEGATIVE); CANNABINOID SCREEN, URINE NEGATIVE (NEGATIVE); COCAINE SCREEN URINE NEGATIVE (NEGATIVE); METHADONE STAT NEGATIVE (NEGATIVE); METHAMPHETAMINE SCREEN URINE S NEGATIVE (NEGATIVE); OPIATE SCREEN URINE POSITIVE (NEGATIVE); OXYCODONE STAT NEGATIVE (NEGATIVE); PROPOXYPHENE STAT NEGATIVE (NEGATIVE); TRICYCLIC ANTIDEPRESSANTS SCRE NEGATIVE (NEGATIVE)
[2020-10-11 15:06] LABS: BILIRUBIN,TOTAL 2.3 MG/DL (0.1-1.0)
[2020-10-11 15:08] LABS: BILIRUBIN,DIRECT 1.7 MG/DL (0.0-0.3); BILIRUBIN,INDIRECT 0.6 MG/DL
[2020-10-11] MEDS ORDERED: ACHD5005 PO (15:20)
[2020-10-11] MEDS ORDERED: HYDR25CA PO (15:20)
[2020-10-11 15:40] VITALS: BP 107/69
[2020-10-11] MEDS ORDERED: HYDR-3820 PO (17:28)
== END 2020-10-11 15:40 | disposition home or self-care (01) ==
LOC: EDUNIT# 10:33 → ER 10:35
DX: G89.18 Other acute postprocedural pain (principal); E87.3 Alkalosis; E66.9 Obesity, unspecified; Z68.32 Body mass index [BMI] 32.0-32.9, adult
CPT/HCPCS: 71045; 71275; 80053; 80306; 81000; 82248; 82805; 82947; 84439; 84443; 85025; 86141; 93005; 99285; G0480 ×2; 36415; 80329; 82247

== ENCOUNTER → 2021-10-18 | Outpatient (CLI) | payer OTHER ==
[~2021-10-18] MED LIST changes: +ACHD5005 PO; -DCS100C PO; +DOCU-239 PO; +HYDR-3820 PO; +HYDR25CA PO
--- NOTE | 2021-10-18 11:25 | Diagnostic Imaging Report ---
Ultrasound of the right breast. INDICATION: right breast mass The diagnostic mammogram performed earlier today noted a roughly 2 cm mass in the area of patient's palpable abnormality in the 10-11 o'clock position right breast approximately 5 cm from the nipple. On this exam there is a well-circumscribed 2.4 x 0.9 x 1.9 cm solid mass in this area. There is a small amount of internal vascularity. I suspect that this is a benign process such as a fibroadenoma. Even so, I would recommend that an ultrasound-guided biopsy be performed to establish a tissue diagnosis. Impression: 1. There is a solid benign-appearing mass in the area of patient's palpable abnormality. An ultrasound-guided biopsy would be recommended to exclude malignancy. ACR BI-RADS Category 4: Suspicious abnormality. Dictated by: Dictated on workstation # [id number]
--- NOTE | 2021-10-18 16:53 | Diagnostic Imaging Report ---
3-D bilateral diagnostic mammogram with CAD. Indication: Right breast mass There is the patient's baseline study. At this time she does note a lump in the upper outer quadrant of the right breast. A marker was placed in the area of concern. In this region there is a 2 cm mass. The tomographic images suggest that this has a partially circumscribed border and I suspect this may represent a benign mass such as a fibroadenoma or cyst. Ultrasound would be recommended for further study however. There are scattered fibroglandular densities in both breasts which could obscure a lesion. There is no primary or secondary sign of malignancy noted otherwise. Impression: There is a 2 cm mass in the upper-outer quadrant right breast in the area of the patient's palpable abnormality. Ultrasound would be recommended for further study. ACR BI-RADS Category 0: Incomplete. (Needs additional imaging evaluation). Result letter will be mailed to the patient. Note: At least 10% of breast cancer is not imaged by mammography. Dictated by: Dictated on workstation # [id number]
== END ==
LOC: RAD 09:08
PROVIDERS: ATTEND Nurse Practitioner
DX: N63.11 Unspecified lump in the right breast, upper outer quadrant (principal)
CPT/HCPCS: 76642; 77066; G0279; 77062

== ENCOUNTER → 2021-10-25 | Outpatient (CLI) | payer OTHER ==
[~2021-10-25] MED LIST changes: +LIDOCAINE 1% INJ 50 ML (XYLOCAINE) VIAL IJ ONE; +LIDOCAINE 1% INJ 50 ML (XYLOCAINE) VIAL ONE
--- NOTE | 2021-10-25 11:26 | Diagnostic Imaging Report ---
INDICATION: Right breast mass. Patient presents for ultrasound guided core biopsy. DETAILS OF THE PROCEDURE: The patient was brought to the sonographic suite and placed on the table in the supine position. Ultrasound imaging of the right breast was performed to evaluate for an appropriate entry site. The right breast was prepped and draped in the usual sterile fashion. A small amount of 1% lidocaine was utilized for local anesthesia. A total of three core biopsies was made of the hypoechoic solid lesion at the 10 to 10:30 location of the right breast 5-6 cm from the nipple utilizing a 14-gauge Achieve needle. A marker clip was deployed. Hemostasis was obtained using manual compression. The patient tolerated the procedure well and left the Department in stable condition. IMPRESSION: Successful ultrasound-guided core biopsy of the right breast mass, as described. Pathology results are currently pending. Dictated by: Dictated on workstation # [id number]
== END ==
LOC: RAD 09:48
PROVIDERS: ATTEND Nurse Practitioner
DX: N63.15 Unspecified lump in the right breast, overlapping quadrants (principal)
CPT/HCPCS: 19083

== ENCOUNTER → 2022-09-05 | Outpatient (CLI) | payer OTHER ==
[~2022-09-05] MED LIST changes: -LIDOCAINE 1% INJ 50 ML (XYLOCAINE) VIAL IJ ONE; -LIDOCAINE 1% INJ 50 ML (XYLOCAINE) VIAL ONE
--- NOTE | 2022-09-05 10:55 | Diagnostic Imaging Report ---
Indication: Right breast lump. Correlation is made with prior ultrasound from 10/18/2021. Sonographic interrogation of the area of lump upper outer right breast was performed. Previously noted lobulated solid mass at the 10:00 location, 5-6 cm from the nipple is again noted. This has been previously biopsied and shown to represent a fibroadenoma. This does measure slightly larger measuring 26 x 12 x 23 mm compared with 24 x 9 x 19 mm. No other masses are identified. IMPRESSION: BI-RADS Category 3 Slight increase in size of the lobulated solid mass 10:00 location right breast, biopsy-proven to represent a fibroadenoma. Follow-up right breast ultrasound in 6 months could be performed to confirm stability. ACR BI-RADS Category 3: Probably benign findings. Dictated by: Dictated on workstation # [id number]
--- NOTE | 2022-09-05 16:01 | Diagnostic Imaging Report ---
INDICATION: Enlarging right breast lump. Patient has known right breast fibroadenoma. 2-D and 3-D bilateral diagnostic mammography was performed with CAD. Scattered fibroglandular densities are identified bilaterally. Lobulated mass in the upper outer right breast is again noted, consistent with biopsy-proven fibroadenoma.. No new mass is detected. No malignant-appearing microcalcifications are seen. Axillae are unremarkable. IMPRESSION: Fibroadenoma upper outer right breast is similar in size to prior exam. Even so, directed sonographic interrogation of this area which corresponds to the palpable abnormality is recommended and will be performed today. ACR BI-RADS Category 0: Incomplete. (Needs additional imaging evaluation). Result letter will be mailed to the patient. Note: At least 10% of breast cancer is not imaged by mammography. BI-RADS 0 Dictated by: Dictated on workstation # [id number]
== END ==
LOC: RAD 09:37
PROVIDERS: ATTEND Nurse Practitioner
DX: C50.411 Malignant neoplasm of upper-outer quadrant of right female breast (principal)
CPT/HCPCS: 76642; 77066; G0279; 77062